=== PATIENT | female | born 1930 | race Caucasian/White ===

== ENCOUNTER 2017-12-19 13:25 | Inpatient (IN) | payer MEDICARE ==
[2017-12-19] VITALS (22 sets, daily range): BP systolic 135–191; BP diastolic 59–91
[~2017-12-19] VITALS: Ht 165.1 cm; Wt 66.2 kg
[~2017-12-19 13:25] MED LIST: ANEXSIA 7.5/321 EACH PO; MOBIC7.5 M1; Z.0.AMBIEN10 MG PO; Z.0.CIPRO500 MG; Z.0.COQ-10100 MG PO; Z.0.PRAVACHOL40 MG PO; [UNRECOGNIZED DRUG - OTHER] TOP
[2017-12-19] MEDS ORDERED: MECLIZINE HCL 12.5 MG TAB PO ONE (13:45)
[2017-12-19 13:55] LABS: BASOPHILS % 0.6 % (0.0-1.0); EOSINOPHILS # (AUTO) 0.3 (0.0-0.4); EOSINOPHILS % 4.2 % (0.0-6.0); HEMATOCRIT 50.2 % (34.2-44.1); LYMPHOCYTES # (AUTO) 2.6 (1.0-3.2); LYMPHOCYTES % 36.2 % (18.0-39.1); MEAN CORPUSCULAR HGB CONC 33.9 g/dL (31-35); MEAN CORPUSCULAR VOLUME 91.6 fL (81-99); MONOCYTES # (AUTO) 0.5 (0.2-0.8); MONOCYTES % 7.1 % (4.4-11.3); NEUTROPHILS # (AUTO) 3.7 (2.1-6.9); NEUTROPHILS % 51.6 % (38.7-80.0); PLATELET COUNT 199 x10e3/uL (140-360); RED BLOOD COUNT 5.48 x10e6/uL (3.6-5.1); RED CELL DISTRIBUTION WIDTH 13.2 % (11.7-14.4)
[2017-12-19 14:16] LABS: ALANINE AMINOTRANSFERASE 17 IU/L (0-55); ALBUMIN 4.3 g/dL (3.5-5.0); ALBUMIN/GLOBULIN RATIO 1.2 (0.8-2.0); ALKALINE PHOSPHATASE 77 IU/L (40-150); ANION GAP 12.7 mmol/L (8-16); BLOOD UREA NITROGEN 19 mg/dL (7-26); BUN/CREATININE RATIO 25 (6-25); CALCIUM 10.3 mg/dL (8.4-10.2); CARBON DIOXIDE 30 mmol/L (22-29); CHLORIDE 104 mmol/L (98-107); CREATINE KINASE 33 IU/L (29-168); CREATININE, SERUM 0.76 mg/dL (0.57-1.11); EST GLOMERULAR FILTRATION RATE > 60 ML/MIN (60-); GLUCOSE 93 mg/dL (74-118); POTASSIUM 4.7 mmol/L (3.5-5.1); SODIUM 142 mmol/L (136-145)
--- NOTE | 2017-12-19 14:19 | Diagnostic Imaging Report ---
History:Vertigo Comparison studies: None Technique: Axial images were obtained from the skull base to the vertex. Coronal and sagittal images reconstructed from the axial data. Intravenous contrast: None Findings: Scalp/skull: No abnormalities. Extra-axial spaces: No masses. No fluid collections. Brain sulci: Mildly prominent. Ventricles: Mild compensatory dilatation. No hydrocephalus. Parenchyma: Subtle hypodensities in the supratentorial white matter are small vessel ischemic changes. No masses, hemorrhage, acute or chronic cortical vascular insults. Sellar/suprasellar region: No abnormalities. Craniocervical junction: Patent foramen magnum. No Chiari one malformation. Incidental findings: Atherosclerotic calcifications in the carotid siphons . Impression: No acute abnormalities. Chronic findings: 1. Mild generalized volume loss. 2. Mild supratentorial white matter small vessel ischemic changes. Signed by: Dr. Homer Ruelas M.D. on 12/19/2017 2:15 PM
--- NOTE | 2017-12-19 14:20 | Diagnostic Imaging Report ---
EXAM: XR CHEST 1 VIEW DATE: 12/19/2017 1:38 PM INDICATION: COMPARISON: None FINDINGS: Lines and Tubes: None Heart and Mediastinum: No acute cardiomediastinal findings. Tortuous aorta. Lungs and Pleura: No significant pleural effusion, pneumothorax, or focal consolidation. Bones and Soft Tissues: No acute findings. IMPRESSION: 1. No acute cardiopulmonary findings. Signed by: Dr. Long Moore MD on 12/19/2017 2:17 PM
[2017-12-19] MEDS ORDERED: LISINOPRIL10 MG PO (15:27)
[2017-12-19] MEDS ORDERED: CYMBALTA20 MG PO (15:31)
[2017-12-19] MEDS ORDERED: SODIUM CHLORIDE 0.9% 1000ML 1,000 ML IV SCH (15:35)
[2017-12-19] MEDS ORDERED: TEMAZEPAM15 MG (15:37)
[2017-12-19] MEDS ORDERED: ASPIRIN 81 MG CHEW TAB PO ONE (15:45)
[2017-12-19 15:50] LABS: BILIRUBIN,URINE NEGATIVE (NEGATIVE); CLARITY,URINE CLEAR (CLEAR); COLOR,URINE YELLOW (YELLOW); KETONES,URINE NEGATIVE (NEGATIVE); LEUKOCYTE ESTERASE ,URINE TRACE (NEGATIVE); NITRITE,URINE POSITIVE (NEGATIVE); PROTEIN,URINE DIPSTICK NEGATIVE (NEGATIVE); URINE UROBILINOGEN 0.2 mg/dL (0.2 - 1)
[2017-12-19 15:59] LABS: BACTERIA,URINE MANY /HPF; EPITHELIAL CELLS,URINE RARE /LPF; RBC,URINE 0-5 /HPF (0-5)
[2017-12-19] MEDS ORDERED: MECLIZINE HCL 12.5 MG TAB PO PRN (16:00)
[2017-12-19] MEDS: HYDRALAZINE HCL 20 MG/ML VIAL IV PRN ×2 (16:05→22:02)
[2017-12-19] MEDS ORDERED: HYDROCODONE/APAP 7.5MG-325MG 1 EA TAB PO PRN (16:15)
[2017-12-19] MEDS ORDERED: CLONIDINE HCL 0.2 MG TAB PO PRN (16:15)
[2017-12-19] MEDS ORDERED: TEMAZEPAM 15 MG CAP PO PRN (16:15)
[2017-12-19] MEDS: HYDROCODONE/APAP 7.5MG-325MG 1 EA TAB PO PRN ×2 (17:12→22:50)
--- NOTE | 2017-12-19 17:25 | Diagnostic Imaging Report ---
History: Dizziness Comparison studies: Head CT on 12/19/2017 Technique: Sagittal T2; axial DWI, FLAIR, MPGR, T1, Coronal FLAIR. Intravenous contrast: None Findings: Scalp: Normal in signal . No masses . Bone marrow: Normal in signal intensity. Extra-axial: No masses or fluid collections. Brain sulci: Mildly prominent. Ventricles: Mild compensatory dilatation. No hydrocephalus. Parenchyma: Multiple discrete and confluent T2 FLAIR hyperintense foci in the supratentorial white matter and in the daniel are nonspecific small vessel ischemic changes. No masses, hemorrhage, acute or chronic cortical ischemic insults. Suprasellar region: No abnormalities. Craniocervical junction: No abnormalities. Patent foramen magnum. No Chiari one malformation. Vessels: Normal flow-voids in the arteries and sinuses. IMPRESSION: No acute abnormalities. No changes when compared to the head CT on 12/19/2017. Chronic findings: 1. Mild generalized volume loss 2. Mild microvascular small vessel ischemic changes in the supratentorial white matter and in the daniel. Signed by: Dr. Homer Ruelas M.D. on 12/19/2017 5:21 PM
[2017-12-19] MEDS ORDERED: D3 DOTS2000 UNIT PO (19:22)
[2017-12-19] MEDS: KETOROLAC TROMETHAMINE 30 MG/ML VIAL IV PRN (20:05)
[2017-12-19 22:13] LABS: CREATINE KINASE 22 IU/L (29-168)
[2017-12-20] VITALS (27 sets, daily range): BP systolic 114–174; BP diastolic 53–94
[2017-12-20] MEDS: HYDRALAZINE HCL 20 MG/ML VIAL IV PRN (02:29)
[2017-12-20] MEDS: KETOROLAC TROMETHAMINE 30 MG/ML VIAL IV PRN ×3 (04:09→19:30)
[2017-12-20] MEDS ORDERED: ONDANSETRON HCL INJ 2 MG/ML VIAL ONE (05:56)
[2017-12-20 06:28] LABS: BASOPHILS % 0.5 % (0.0-1.0); EOSINOPHILS # (AUTO) 0.2 (0.0-0.4); HEMATOCRIT 44.7 % (34.2-44.1); HEMOGLOBIN 15.3 g/dL (12.0-16.0); LYMPHOCYTES # (AUTO) 1.4 (1.0-3.2); LYMPHOCYTES % 17.5 % (18.0-39.1); MEAN CORPUSCULAR HEMOGLOBIN 30.3 pg (28-32); MEAN CORPUSCULAR HGB CONC 34.2 g/dL (31-35); MEAN CORPUSCULAR VOLUME 88.5 fL (81-99); MONOCYTES # (AUTO) 0.5 (0.2-0.8); MONOCYTES % 6.5 % (4.4-11.3); NEUTROPHILS # (AUTO) 5.9 (2.1-6.9); NEUTROPHILS % 73.1 % (38.7-80.0); PLATELET COUNT 183 x10e3/uL (140-360); RED BLOOD COUNT 5.05 x10e6/uL (3.6-5.1); RED CELL DISTRIBUTION WIDTH 13.3 % (11.7-14.4)
[2017-12-20 07:01] LABS: ALANINE AMINOTRANSFERASE 14 IU/L (0-55); ALBUMIN 3.9 g/dL (3.5-5.0); ALBUMIN/GLOBULIN RATIO 1.4 (0.8-2.0); ALKALINE PHOSPHATASE 66 IU/L (40-150); ANION GAP 14.6 mmol/L (8-16); BLOOD UREA NITROGEN 16 mg/dL (7-26); BUN/CREATININE RATIO 25 (6-25); CALCIUM 9.3 mg/dL (8.4-10.2); CARBON DIOXIDE 21 mmol/L (22-29); CHLORIDE 109 mmol/L (98-107); CREATININE, SERUM 0.65 mg/dL (0.57-1.11); EST GLOMERULAR FILTRATION RATE > 60 ML/MIN (60-); GLUCOSE 131 mg/dL (74-118); POTASSIUM 3.6 mmol/L (3.5-5.1); SODIUM 141 mmol/L (136-145)
[2017-12-20 07:59] LABS: CREATINE KINASE 35 IU/L (29-168)
[2017-12-20] MEDS: LISINOPRIL 10 MG TAB PO SCH ×2 (08:07→09:00)
[2017-12-20] MEDS: HYDROCODONE/APAP 7.5MG-325MG 1 EA TAB PO PRN (08:50)
[2017-12-20] MEDS ORDERED: DULOXETINE HCL 20 MG DELAYED RELEASE PO SCH (09:00)
[2017-12-20 11:50] LABS: CHOL/HDL RATIO 4.8 (3.0-3.6)
[2017-12-20 12:10] LABS: THYROID STIMULATING HORMONE 1.301 uIU/mL (0.350-4.940)
[2017-12-20 12:54] LABS: CREATINE KINASE 43 IU/L (29-168)
--- NOTE | 2017-12-20 14:12 | Consultation ---
DATE OF CONSULTATION: HISTORY OF PRESENT ILLNESS: Ms. Stephens is an 87-year-old right hand dominant woman with past medical history significant for hypertension, hyperlipidemia, and chronic intermittent vertigo who presented to the Emergency Center at [facility] on December 19, 2017 with vertigo. For 6 days prior to admission, the patient has experienced an intermittent vertiginous sensation with associated blurred vision, nausea, and dry heaving. Ms. Stephens reports the vertiginous sensation and other symptoms are exacerbated by movement (i.e. turning the head in either direction, turning over an either direction in bed, etc.). The vertiginous sensation is transient, lasting only a few seconds. The vertiginous sensation and associated symptoms persisted, unchanged, for 6 days. Ms. Stephens was brought to the Emergency Center at [facility] by her daughter, Zo (a nurse at [facility]), for further evaluation of her symptoms. Upon arrival in the Emergency Center, the patient was afebrile with a blood pressure of 193/90 mmHg and a pulse of 71 beats per minute. Her neurological examination was documented as follows: Alert. Oriented x3. No alteration in mental status. Not disoriented. Alertness is not decreased. No aphasia. Mood/affect normal. Speech normal. No dysphagia. Cranial nerves normal (as tested). No cranial nerve deficit. Normal gait. No motor deficit. No weakness. No sensory deficit. Reflexes normal. No pronator drift. A CT of the brain without contrast was performed and did not show evidence of recent large territorial ischemia or hemorrhage. While in the Emergency Center, the patient was found to have runs of ventricular tachycardia. Therefore, the patient was admitted to the intensive care unit at [facility] for further evaluation of her cardiac and other symptoms. As stated above, the patient does endorse a history of chronic intermittent vertigo. Generally, the symptoms lasted for approximately 2 days and are significantly improved with Antivert. However, the patient's symptoms have not been alleviated with Antivert over the past several days. REVIEW OF SYSTEMS: Nausea, dry heaving, blurred vision, chronic neck and low back pain, vertigo. Otherwise, a 12-point review of systems is negative. PAST MEDICAL HISTORY: Hypertension, hyperlipidemia, chronic intermittent vertigo, chronic low back pain secondary to degenerative disk disease and scoliosis, macular degeneration, hiatal hernia. PAST SURGICAL HISTORY: Fundoplication, hernia repair, left patellar surgery, total hysterectomy, tonsillectomy, appendectomy, bilateral cataract surgeries. PAST HOSPITALIZATIONS: Surgeries/procedures as listed, childbirth x5, chest pain/bradycardia. FAMILY MEDICAL HISTORY: The patient's paternal and maternal grandparents are . Their medical histories are unknown. The patient's father is from an unknown cancer. The patient's mother is . She had coronary artery disease and stroke. Ms. Stephens had 4 siblings. Two sisters are , their causes of are unknown. One brother is from a stroke. A second brother is from mesothelioma. Ms. Stephens has 5 children. One daughter has hypertension, hyperlipidemia, and ovarian cancer. A second daughter has diabetes mellitus and uterine cancer. A third daughter has diabetes mellitus. A fourth daughter has hyperlipidemia. SOCIAL HISTORY: The patient is . She graduated high school, attended business school, and nursing school. The patient is retired. Ms. Stephens does smoke. She has smoked 1 pack of cigarettes per day for the past 6 years. She does not report current or prior alcohol or recreational drug use. HOME MEDICATIONS: Vitamin D3 5000 units by mouth daily, Cymbalta 60 mg by mouth daily, hydrocodone/acetaminophen 10-325 mg by mouth 4 times daily as needed for pain, lisinopril 10 mg by mouth daily, pravastatin 40 mg by mouth at bedtime daily, temazepam 15 mg by mouth at bedtime as needed for insomnia, coenzyme Q10 400 mg by mouth daily. ALLERGIES: NO KNOWN DRUG ALLERGIES. NO KNOWN FOOD ALLERGIES. NO KNOWN ALLERGIES TO LATEX. NO KNOWN ALLERGIES TO IODINE OR OTHER CONTRAST MATERIALS. PHYSICAL EXAMINATION VITAL SIGNS: Height 65 inches, weight 146 pounds, BMI 24.3 kg per meter squared. Blood pressure 124/60 mmHg, pulse 72 beats per minute, respiratory rate 16 breaths per minute, oxygen saturation 94% on room air. GENERAL: The patient is awake and alert, does not appear distressed. HEENT: Normocephalic, atraumatic. Pupils are surgical. Moist mucous membranes. NECK: Supple. No appreciable thyromegaly. No appreciable carotid bruits. CARDIOVASCULAR: S1, S2, regular rate and rhythm. No murmurs, rubs, or gallops. RESPIRATORY: Clear to auscultation bilaterally. No wheezes, rhonchi, or rales. EXTREMITIES: The skin is warm and dry. No clubbing, cyanosis, or edema. The posterior tibial and dorsalis pedis pulses are 1+ and symmetric. SKIN: No rashes or lesions. NEUROLOGIC: MEMORY/ATTENTION: The patient is awake and alert, oriented to person, place, time, and situation. CRANIAL NERVES: Cranial nerve I - not tested. Cranial nerves II, III, IV, and - pupils are surgical, extraocular movements intact, no nystagmus. Cranial nerve V - sensation to light touch and pinprick is intact in the bilateral V1 through V3 distributions. Strength of the temporalis and masseter muscles is within normal limits. Cranial nerve VII - the face is symmetric as are all facial movements. Strength is within normal limits. Cranial nerve VIII - hearing is intact to finger rub bilaterally. Cranial nerve IX, X - soft palate elevates equally and symmetrically. Cranial nerve XI - normal strength of the bilateral sternocleidomastoid and trapezius muscles. Cranial nerve XII - the tongue protrudes midline and moves symmetrically from side to side. STRENGTH: Bulk is normal. Strength is 5/5 in the bilateral deltoids, biceps, triceps, wrist flexors and extensors, finger flexors and extensors, intrinsic hand muscles, hip flexors, knee flexors and extensors, ankle dorsiflexion and plantar flexion, and intrinsic foot muscles. Tone is normal. DTRs: Deep tendon reflexes are 1+ and symmetric at the triceps, biceps, brachioradialis, and patellas. Deep tendon reflexes are absent and symmetric at the Achilles. Plantar responses are flexor bilaterally. SENSATION: Sensation is intact to light touch and pinprick in both arms and both legs. CEREBELLAR: Pykvei-crkz-nrpaom and heel-rucker movements are intact without dysmetria or other impairment. GAIT: Deferred. SPEECH: Spontaneous speech is normal without appreciable dysarthria or aphasia. Repetition is intact. INVOLUNTARY MOVEMENTS: None. PRONATOR DRIFTS: None. LABORATORY DATA: Sodium 141, potassium 3.6, chloride 109, carbon dioxide 21, anion gap 14.6, BUN 16, creatinine 0.65, estimated GFR greater than 60, BUN to creatinine ratio 25, glucose 131, calcium 9.3, total bilirubin 0.7, AST 19, ALT 14, alkaline phosphatase 66, total protein 6.7, albumin 3.9, globulin 2.8, albumin to globulin ratio 1.4. Creatinine kinase 33, 22, 35. CK-MB 0.80, 0.60, 0.90. Troponin I less than 0.001, less than 0.001, less than 0.001. B-natriuretic peptide 114.5. The CBC with differential and platelets reveals a white blood cell count of 8.06 with 73.1% neutrophils, 17.5% lymphocytes, 6.5% monocytes, 2.0% eosinophils, and 0.5% basophils. Hemoglobin and hematocrit of 15.3 and 44.7, respectively. The platelet count is 183. Urinalysis is significant for positive nitrites, trace leukocyte esterase, 11 to 20 white blood cells, and many urine bacteria. DIAGNOSTIC STUDIES 1. EKG 12/19/2017: Normal sinus rhythm at 70 beats per minute. 2. Chest x-ray 12/19/2017: No acute cardiopulmonary findings. 3. CT of the brain without contrast 12/19/2017: On my review, there is no evidence of recent large territorial ischemia, hemorrhage, mass, or mass effect. 4. MRI of the brain without contrast 12/19/2017: On my review, there is no evidence of recent large territorial ischemia, hemorrhage, mass, or mass effect. There is diffuse cerebral atrophy, appropriate for age. There are multiple scattered T2/flair hyperintensities in the supratentorial white matter and daniel compatible with moderate chronic small vessel ischemic disease. 5. Echocardiogram: Ejection fraction 60 to 65%. Concentric left ventricular hypertrophy. Mild aortic insufficiency and mitral regurgitation. ASSESSMENT AND PLAN: Ms. Stephens is an 87-year-old right hand dominant woman with chronic intermittent vertigo and admitted to [facility] with vertigo, blurred vision, nausea, and dry heaving of 6 days duration. The patient's neurological examination is nonfocal. Her laboratory data and other diagnostic studies have been reviewed and are documented above. In my opinion, Ms. Stephens has benign paroxysmal positional vertigo. The diagnosis was discussed in detail with the patient. RECOMMENDATIONS 1. Meclizine will be changed to 25 mg by mouth once daily. A physical therapy consultation will be placed for further evaluation and treatment of benign paroxysmal positional vertigo. 2. Defer treatment of the remaining medical comorbidities to the primary and other services following the patient. Thank you for this consultation. I will continue to follow this patient while she remains in the hospital. TIME SPENT: 50 minutes. Job#: [id number] DAVYU AYLEEN
[2017-12-20] MEDS ORDERED: HYDROMORPHONE 1MG/1ML INJ IV ONE (14:30)
--- NOTE | 2017-12-20 14:55 | Consultation ---
DATE OF CONSULTATION: December 20, 2017 CARDIAC CONSULTATION REASON FOR CONSULTATION: Dizzy spells with nonsustained VT noted on telemetry. 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 Most importantly is the smoking, hypertension, hyperlipidemia, and severe low back pain with very limited activities. She does have history of vertigo sensation on and off. Since over the last few days, she is having worsening symptoms. They looks definitely vertigo by description, positional, associated with nausea, feeling unwell and almost vomiting. She did have also episode of blurry vision. All these episodes are related to movement of her neck. She denied having any anginal symptoms. She denied having any chest pain. She came to the emergency room. She had MRI and CT scan of her head, which showed chronic changes with no acute changes. While in ER, it was noted wide QRS complexes. It was thought to be nonsustained VT. The patient is admitted to the intensive care unit. Cardiac consultation is obtained. I visited with the patient who is doing well. Her main symptom is her severe vertigo. Her activities are very much limited by her back problem. At her level of activity, there is no angina and no shortness of breath. She is chronic smoker for many-many years. There is no orthopnea and no paroxysmal nocturnal dyspnea. There is no syncope or presyncope. There are repeated episodes of vertigo-like illnesses. REVIEW OF SYSTEMS CARDIAC: As per above. PULMONARY: Occasional cough. No hemoptysis. Shortness of breath on exertion, but usually she is limited with her back symptoms. No recent travel. GI: Nausea with episodes of vertigo, but no vomiting, no diarrhea, no melena. : Increased frequency of urination. MUSCULOSKELETAL: Back pain with radiculopathy, very severe, very advanced. NEUROLOGICAL: No CVA. ENDOCRINE: No diabetes. HEMATOLOGY: No easy bruising or bleeding. PAST MEDICAL HISTORY 1. Hypertension. 2. Hyperlipidemia. 3. Chronic low back pain. 4. Macular degeneration. 5. Chronic intermittent vertigo. 6. Hiatus hernia. 7. Fundoplication. 8. Abdominal incisional hernia repair. 9. Left bipolar surgery. 10. Total hysterectomy. 11. Tonsillectomy. 12. Appendectomy. 13. Bilateral cataract surgery. SOCIAL HISTORY: She lives at home. She is a heavy smoker. She is a non-alcohol drinker. She is a retired nurse. HOME MEDICATIONS: Lisinopril 10 mg a day, Pravastatin 40 mg a day, vitamin D, temazepam, and vitamins and other p.r.n. medications. ALLERGIES: NONE. FAMILY HISTORY: Father of cancer. Mother of stroke and CAD. Out of her siblings, hypertension, diabetes mellitus, hyperlipidemia. PHYSICAL EXAMINATION VITAL SIGNS: Height of 5 feet 5 inches, weight of 146 pounds. Blood pressure 144/60, heart rate of 80, respiratory rate of 18, temperature of 99 Fahrenheit. HEENT: Pupils are reactive. NECK: No elevation of jugular venous pulsation. No bruit. No thyromegaly. No lymphadenopathy. CHEST: Clear to auscultation and percussion. HEART: PMI 5th left intercostal space. Normal 1st and 2nd heart sounds. ABDOMEN: Soft with good bowel sounds. No organomegaly. No abdominal bruits. EXTREMITIES: No cyanosis. No clubbing. No edema. NEUROLOGIC: Positional vertigo is noted. Patient is avoiding to move her head. No motor deficits. LABORATORY DATA: EKG showing normal sinus rhythm. ST-T segment changes are noted. BNP of 114. Cardiac enzymes are normal. CT and MRI by report chronic changes. Sodium of 141, potassium 3.6, BUN of 16, creatinine of 0.65. White blood cell count of 8000, hemoglobin of 15.2, hematocrit 45%, platelet count of 183,000. IMPRESSION AND PLAN 1. Positional vertigo. 2. Smoker. 3. Chronic obstructive pulmonary disease. 4. Hypertension. 5. Hyperlipidemia. 6. Abnormal electrocardiogram. 7. Reviewing of telemetry seems to be artifact. 1. There is no doubt, patient does have significant coronary artery disease in view of all her risk factor and her smoking and her age and the abnormality on the EKG. Discussed at length with the patient. For the time being, she prefers just conservative approach, which we will respect. Offered stress test in the future when she feels better. We will review her echocardiogram which is ordered. The patient can go to the floor. Discussed with the patient and her family at bedside. Job#: [id number] JAROCHO
--- NOTE | 2017-12-20 16:43 | History and Physical ---
HISTORY OF PRESENT ILLNESS: She is an 87-year-old female with past medical history positive for chronic back pain, hypertension who came here to the hospital complaining of dizziness. She had an MRI of the head which showed no significant abnormalities. Patient was seen by Dr. Georgette Hurst who diagnosed her with benign positional vertigo. REVIEW OF SYSTEMS: CARDIOVASCULAR: No chest pain or palpitation. RESPIRATORY: No shortness of breath and no cough. GASTROINTESTINAL: No nausea, vomiting or diarrhea. GENITOURINARY: No frequency and no dysuria. MUSCULOSKELETAL: She has chronic back pain. SOCIAL HISTORY: She smokes. She does not drink. PAST MEDICAL HISTORY: Hypertension and chronic back pain. PHYSICAL EXAMINATION: VITAL SIGNS: Blood pressure 140/60, temperature to 98.1, heart rate 76 per minute, respiratory rate 14 per minute. Oxygen saturation 96%. LABORATORY DATA: On the blood work we have BMP with a sodium 141, potassium 3.6, chloride 109. CO2 21, BUN 16, creatinine 0.65. Glucose 131. On the CBC white blood count 8.06, hemoglobin 15.3 hematocrit 44.7, platelet count 183,000. AST 18, ALT 14, total bilirubin 0.7, alkaline phosphatase 66. MRI of the head showed no evidence of any stroke or tumors and showed ischemic changes on the brain. Chest x-ray came back unremarkable. FINAL IMPRESSION 1. Benign positional vertigo. 2. Hypertension. 3. Chronic back pain. PLAN OF TREATMENT: Going to start physical and occupational therapy. Continue lisinopril 10 mg daily. [place] 1 tablet q.4 h. as needed for pain. Cymbalta 60 mg daily. Toradol 30 mg IV q.6 h. as needed for severe pain. Possible discharge tomorrow. Job#: [id number]
[2017-12-20] MEDS ORDERED: CIPROFLOXACIN 250 MG TAB PO SCH (17:00)
[2017-12-20] MEDS: ONDANSETRON HCL INJ 2 MG/ML VIAL IV PRN ×2 (17:22→21:22)
[2017-12-20] MEDS: HYDROCODONE/APAP 10MG-325MG TAB PO PRN (20:27)
[2017-12-20] MEDS: CEFTRIAXONE SOD 1 GM VIAL IV SCH (22:33)
[2017-12-21] VITALS: BP 124/55
[2017-12-21] MEDS: HYDROCODONE/APAP 10MG-325MG TAB PO PRN ×2 (02:34→08:51)
[2017-12-21 04:00] VITALS: BP 147/67
[2017-12-21 06:53] LABS: BASOPHILS % 0.5 % (0.0-1.0); EOSINOPHILS # (AUTO) 0.2 (0.0-0.4); HEMATOCRIT 42.3 % (34.2-44.1); LYMPHOCYTES # (AUTO) 2.3 (1.0-3.2); LYMPHOCYTES % 30.7 % (18.0-39.1); MEAN CORPUSCULAR HEMOGLOBIN 30.2 pg (28-32); MEAN CORPUSCULAR HGB CONC 33.1 g/dL (31-35); MEAN CORPUSCULAR VOLUME 91.4 fL (81-99); MONOCYTES # (AUTO) 0.6 (0.2-0.8); MONOCYTES % 8.1 % (4.4-11.3); NEUTROPHILS # (AUTO) 4.4 (2.1-6.9); NEUTROPHILS % 58.6 % (38.7-80.0); PLATELET COUNT 175 x10e3/uL (140-360); RED BLOOD COUNT 4.63 x10e6/uL (3.6-5.1); RED CELL DISTRIBUTION WIDTH 13.2 % (11.7-14.4)
[2017-12-21 07:21] LABS: ALANINE AMINOTRANSFERASE 12 IU/L (0-55); ALBUMIN 3.5 g/dL (3.5-5.0); ALBUMIN/GLOBULIN RATIO 1.3 (0.8-2.0); ALKALINE PHOSPHATASE 55 IU/L (40-150); ANION GAP 11.1 mmol/L (8-16); BLOOD UREA NITROGEN 25 mg/dL (7-26); BUN/CREATININE RATIO 33 (6-25); CALCIUM 9.1 mg/dL (8.4-10.2); CARBON DIOXIDE 25 mmol/L (22-29); CHLORIDE 107 mmol/L (98-107); CREATININE, SERUM 0.76 mg/dL (0.57-1.11); EST GLOMERULAR FILTRATION RATE > 60 ML/MIN (60-); GLUCOSE 91 mg/dL (74-118); POTASSIUM 4.1 mmol/L (3.5-5.1); SODIUM 139 mmol/L (136-145)
[2017-12-21 07:28] VITALS: BP 158/67
[2017-12-21] MEDS: ONDANSETRON HCL INJ 2 MG/ML VIAL IV PRN (08:44)
[2017-12-21] MEDS: LISINOPRIL 10 MG TAB PO SCH (08:50)
[2017-12-21] MEDS ORDERED: DULOXETINE HCL 20 MG DELAYED RELEASE PO SCH (09:00)
[2017-12-21] MEDS ORDERED: MECLIZINE HCL 12.5 MG TAB PO SCH (09:00)
[2017-12-21] MEDS: CEFTRIAXONE SOD 1 GM VIAL IV SCH (09:30)
[2017-12-21] MEDS ORDERED: MECLIZINE HCL12.5 MG PO (09:35)
[2017-12-21] MEDS ORDERED: CIPRO500 MG PO (09:35)
[2017-12-21] MEDS ORDERED: ZOFRAN ODT4 MG SL (09:36)
[2017-12-21 09:39] VITALS: BP 158/67
--- NOTE | 2017-12-21 09:59 | Discharge Summary ---
ADMIT DIAGNOSES 1. Sepsis secondary to urinary tract infection. 2. Hypertensive heart disease. 3. Chronic obstructive pulmonary disease. 4. Tobacco abuse. DISCHARGE DIAGNOSES 1. Extended spectrum beta-lactamase E. coli urinary tract infection, resolving. 2. Hypertensive heart disease. 3. Chronic obstructive pulmonary disease. 4. Tobacco abuse. 5. Benign positional vertigo. HOSPITAL COURSE: This is an 87-year-old white woman was initially admitted to [facility] with the diagnosis of sepsis secondary to urinary tract infection. She was also diagnosed with benign positional vertigo during this hospitalization. The patient had urine culture done during hospitalization. Preliminary culture revealed gram-negative chris organisms. The final results of the urine culture revealed ESBL E. coli organism. The patient was also seen by cardiology during this hospitalization, namely Dr. Terry Snider, who did concur with neurology that this was positional vertigo. The patient was seen by neurologist, namely Dr. Renetta Hurst. During the hospital stay, the patient underwent a brain CT which revealed mild generalized volume loss with mild supratentorial white matter small vessel ischemic changes, but no acute pathology was appreciated. The patient subsequently underwent MRI of the brain during this hospitalization without contrast that did not reveal any acute intracranial abnormality, but did confirm the findings on the CT of the head, which were mild microvascular small vessel ischemic changes in the supratentorial white matter in the daniel. The patient's hospitalization was unremarkable. The patient's condition on discharge was stable. DISCHARGE MEDICATIONS 1. Ciprofloxacin 250 mg p.o. b.i.d. for 7 days. 2. Ondansetron 8 mg p.o. b.i.d. p.r.n. nausea and vomiting, 12 prescribed. 3. Meclizine 25 mg 1 p.o. b.i.d. p.r.n. nausea and vomiting, 30 prescribed. 4. Hydrocodone with acetaminophen 10 per 325 mg q.i.d. p.r.n. pain. 5. Duloxetine 60 mg daily. 6. Lisinopril 10 mg daily. 7. Temazepam 15 mg p.o. at bedtime p.r.n. insomnia. 8. Pravastatin 40 mg at bedtime. 9. Co-Enzyme Q10 400 mg daily. 10. Vitamin D3 5000 units daily. FOLLOWUP INSTRUCTIONS: The patient was instructed to follow with her attending, namely myself, Dr. Memo Reynoso, on December 28, 2017. MEMO REYNOSO MD Job#: [id number] RI cc: MD RENETTA BELLA MD MTDD
== END 2017-12-21 10:04 | disposition home or self-care (01) | DRG 872 ==
LOC: ER 13:25 → ERHOLD 15:54 → ICU 18:34 → MED/SURG 12-20 17:16
PROVIDERS: ADMIT Internal Medicine; ATTEND Internal Medicine
DX: A41.9 Sepsis, unspecified organism (principal); N39.0 Urinary tract infection, site not specified; I47.2 Ventricular tachycardia; H81.10 Benign paroxysmal vertigo, unspecified ear; J44.9 Chronic obstructive pulmonary disease, unspecified; Z16.12 Extended spectrum beta lactamase (ESBL) resistance; F17.210 Nicotine dependence, cigarettes, uncomplicated; I11.9 Hypertensive heart disease without heart failure; B96.20 Unspecified Escherichia coli [E. coli] as the cause of diseases classified elsewhere; H35.30 Unspecified macular degeneration; K44.9 Diaphragmatic hernia without obstruction or gangrene; M54.5 Low back pain; G89.29 Other chronic pain
CPT/HCPCS: 36415; 70450; 70551; 71045; 80053; 80061; 81001; 82550; 82553; 83735; 83880; 84443; 84484; 85025; 87086; 87186; 93005; 93306; 96376; 99284; J0360; J0696; J1170; J1885; J2405; J7030

== ENCOUNTER → 2018-09-08 | Outpatient (CLI) | payer MEDICARE ==
[~2018-09-08] MED LIST changes: +CIPRO500 MG PO; +CYMBALTA20 MG PO; +D3 DOTS2000 UNIT PO; +LISINOPRIL10 MG PO; +MECLIZINE HCL12.5 MG PO; +TEMAZEPAM15 MG; +ZOFRAN ODT4 MG SL
--- NOTE | 2018-09-08 14:16 | Diagnostic Imaging Report ---
EXAMINATION: CHEST 2 VIEWS INDICATION: Pneumonia. COMPARISON: Chest radiograph 12/19/2017. FINDINGS: TUBES and LINES: None. LUNGS: Mild patchy left basilar opacity. No evidence of lobar consolidation or pulmonary edema. PLEURA: No pleural effusion or pneumothorax. HEART AND MEDIASTINUM: The cardiomediastinal silhouette is unremarkable. Atherosclerotic calcification of the aortic arch. BONES AND SOFT TISSUES: Dextroconvex scoliosis of the thoracic spine. Mild loss of vertebral body height within a mid thoracic vertebral body. UPPER ABDOMEN: No free air under the diaphragm. IMPRESSION: Mild patchy left basilar opacity, likely atelectasis. Patchy pneumonia can have a similar appearance in the appropriate clinical setting. No evidence of lobar pneumonia. Signed by: Dr. Selene Tejeda MD on 09/08/2018 2:13 PM
== END ==
LOC: RAD 12:36
PROVIDERS: ATTEND Internal Medicine
DX: J15.9 Unspecified bacterial pneumonia (principal)
CPT/HCPCS: 71046

== ENCOUNTER → 2018-11-15 | Outpatient (CLI) | payer MEDICARE ==
[~2018-11-15] MED LIST changes: +NORCO 10-325 T1 EACH PO; -TEMAZEPAM15 MG; +TEMAZEPAM15 MG PO
--- NOTE | 2018-11-15 13:34 | Diagnostic Imaging Report ---
EXAMINATION: CHEST 2 VIEWS INDICATION: Cough. COMPARISON: Chest radiograph 09/08/2018. FINDINGS: TUBES and LINES: None. LUNGS: Lungs are moderately inflated. Interval resolution of mild patchy left basilar opacity. There is no evidence of pneumonia or pulmonary edema. PLEURA: No pleural effusion or pneumothorax. HEART AND MEDIASTINUM: The cardiomediastinal silhouette is unremarkable. There are atherosclerotic calcifications within the aorta. BONES AND SOFT TISSUES: Dextroconvex scoliosis of the thoracic spine. Mild loss of vertebral body height within a mid thoracic vertebral body is again noted. UPPER ABDOMEN: No free air under the diaphragm. IMPRESSION: No radiographic evidence of pneumonia. Signed by: Dr. Selene Tejeda MD on 11/15/2018 1:30 PM
== END ==
LOC: RAD 12:32
PROVIDERS: ATTEND Internal Medicine
DX: R05 Cough (principal)
CPT/HCPCS: 71046

== ENCOUNTER 2018-11-18 16:29 | Inpatient (IN) | payer MEDICARE ==
[~2018-11-18] VITALS: Ht 165.1 cm; Wt 70.8 kg
[~2018-11-18 16:29] MED LIST changes: -NORCO 10-325 T1 EACH PO
[2018-11-18] MEDS ORDERED: ALBUTEROL/IPRATROPIUM 3 ML NEB NEB ONE ×2 (17:15→18:00)
[2018-11-18] MEDS ORDERED: SODIUM CHLORIDE 0.9% 1000ML 1,000 ML IV ONE (17:15)
[2018-11-18] MEDS ORDERED: DEXAMETHASONE SOD PHOS 10 MG/1 ML VIAL IV ONE (17:15)
[2018-11-18] MEDS: CEFTAROLINE FOSAMIL ACETATE 600 MG in SODIUM CHLORIDE 0.9% 250ML 250 ML IV SCH (17:23)
[2018-11-18 17:27] LABS: BASOPHILS % 0.4 % (0.0-1.0); EOSINOPHILS # (AUTO) 0.4 (0.0-0.4); HEMATOCRIT 43.5 % (34.2-44.1); HEMOGLOBIN 14.8 g/dL (12.0-16.0); LYMPHOCYTES % 20.9 % (18.0-39.1); MEAN CORPUSCULAR HEMOGLOBIN 30.8 pg (28-32); MEAN CORPUSCULAR VOLUME 90.4 fL (81-99); MONOCYTES % 10.3 % (4.4-11.3); NEUTROPHILS % 63.9 % (38.7-80.0); PLATELET COUNT 227 x10e3/uL (140-360); RED BLOOD COUNT 4.81 x10e6/uL (3.6-5.1); RED CELL DISTRIBUTION WIDTH 14.6 % (11.7-14.4)
[2018-11-18] MEDS ORDERED: LISINOPRIL 10 MG TAB PO ONE (17:45)
[2018-11-18 17:46] LABS: ALANINE AMINOTRANSFERASE 19 IU/L (0-55); ALBUMIN 3.8 g/dL (3.5-5.0); ALBUMIN/GLOBULIN RATIO 1.5 (0.8-2.0); ALKALINE PHOSPHATASE 55 IU/L (40-150); ANION GAP 14.4 mmol/L (8-16); BLOOD UREA NITROGEN 13 mg/dL (7-26); BUN/CREATININE RATIO 19 (6-25); CALCIUM 9.5 mg/dL (8.4-10.2); CARBON DIOXIDE 21 mmol/L (22-29); CHLORIDE 108 mmol/L (98-107); EST GLOMERULAR FILTRATION RATE > 60 ML/MIN (60-); GLUCOSE 123 mg/dL (74-118); POTASSIUM 3.4 mmol/L (3.5-5.1); SODIUM 140 mmol/L (136-145)
[2018-11-18 17:47] LABS: ABG HCO3 23 mmol/L (23-28); ABG PCO2 39 mmHg (41-51); ABG PH 7.38 (7.31-7.41); ABG PO2 82 mmHg (80-105)
[2018-11-18] MEDS ORDERED: MAGNESIUM SULFATE 2GM/50ML 50 ML IV ONE (18:00)
--- NOTE | 2018-11-18 18:44 | Diagnostic Imaging Report ---
EXAMINATION: CHEST 2 VIEWS INDICATION: ^Pneumonia ^[id number] ^1815 COMPARISON: 11/15/2018 FINDINGS: PA and lateral views TUBES and LINES: None. LUNGS: Limited by body habitus and low lung volumes. Mild medial retrocardiac opacification. PLEURA: No significant pleural effusion or pneumothorax. HEART AND MEDIASTINUM: The cardiac silhouette is prominent, accentuated by low lung volumes. Aorta is mildly calcified and tortuous. BONES AND SOFT TISSUES: Generalized demineralization limits evaluation. Mild thoracic spine scoliosis. Soft tissues are unremarkable. UPPER ABDOMEN: No free air under the diaphragm. IMPRESSION: Limited as above. Medial retrocardiac opacification, representing atelectasis and/or pneumonia. Signed by: Dr. Tutu Bolanos MD on 11/18/2018 6:41 PM
[2018-11-18] MEDS ORDERED: ASPIRIN 81 MG CHEW TAB PO ONE (18:45)
--- NOTE | 2018-11-18 18:45 | Diagnostic Imaging Report ---
SHOULDER RIGHT COMPLETE - 2 views HISTORY: Pain COMPARISON: None available. FINDINGS: See impression. IMPRESSION: Generalized demineralization. No evidence of acute displaced fracture or dislocation of the right shoulder. Degenerative changes of the glenohumeral joint. Signed by: Dr. Tutu Bolanos MD on 11/18/2018 6:42 PM
[2018-11-18] MEDS: ALBUTEROL/IPRATROPIUM 3 ML NEB NEB SCH ×2 (19:00→23:20)
[2018-11-18] MEDS ORDERED: NORCO 10-325 T1 EACH PO (19:07)
[2018-11-18 19:37] LABS: CREATINE KINASE MB 1.6 ng/mL (0-5.0)
[2018-11-18] MEDS ORDERED: POTASSIUM CHLORIDE 20 MEQ TAB CR PO STA (20:05)
[2018-11-18] MEDS ORDERED: ONDANSETRON HCL 4 MG ORAL DISINTEGRATING TAB SL PRN (20:15)
[2018-11-18] MEDS ORDERED: MECLIZINE HCL 12.5 MG TAB PO PRN (20:15)
[2018-11-18] MEDS ORDERED: POTASSIUM CHLORIDE 20MEQ/15ML UDC ONE (20:15)
[2018-11-18] MEDS ORDERED: POTASSIUM CHLORIDE 20 MEQ TAB CR PO ONE (20:30)
[2018-11-18] MEDS: GUAIFENESIN/CODEINE 10 ML CUP PO PRN (21:15)
[2018-11-18] MEDS ORDERED: GUAIFENESIN/CODEINE 10 ML CUP ONE (21:15)
--- NOTE | 2018-11-18 21:15 | History and Physical ---
CHIEF COMPLAINT: Worsening shortness of breath and cough. HISTORY OF PRESENT ILLNESS: This is an 88-year-old white woman, who presents to [facility] with a 3-4 week history of worsening cough, chest congestion. The patient states two weeks ago she was diagnosed pneumonia, was prescribed oral levofloxacin. The patient states she has not improved in the last two weeks. The patient states her shortness of breath only worsened. The patient's sputum has been productive at times is yusuf in color. In the emergency room, the patient had a chest x-ray performed that revealed retrocardiac opacification. Also, the cardiac silhouette was prominent. The patient also had x-ray of the right shoulder joint, which revealed degenerative changes of the glenohumeral joint. In the emergency room, the patient found a lactic acid of 20.1, which is elevated. The patient's BUN and creatinine are 13 and 0.7 respectively. The patient's potassium 3.4, serum bicarbonate is 21. Initial cardiac enzymes are negative. The patient was admitted for further evaluation and treatment. The patient was found to have white blood cell count 9400, 63% segmented neutrophils. REVIEW OF SYSTEMS: GENERAL: She has had fever and chills and felt quite ill for the last 2 weeks. HEENT: No headaches. No vision changes. CARDIOVASCULAR/RESPIRATORY: Complains of worsening shortness of breath, productive cough and chest congestion for the last 3 to 4 weeks. No chest pain or tightness. No palpitations. GI: No nausea, vomiting, or constipation. : No UTIs. NEUROMUSCULAR: Complains of intense chronic low back pain. ALLERGIES: NO KNOWN DRUG ALLERGIES. PAST MEDICAL HISTORY: 1. Tobacco abuse. 2. COPD. 3. Chronic diastolic congestive heart failure. 4. Degenerative joint disease. 5. 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 6. Hyperlipidemia. 7. Fatty liver disease. 8. GERD. 9. Atherosclerosis. PAST SURGICAL HISTORY: 1. Exploratory laparotomy with repair of hiatal hernia and [place] fundoplication in February 2011. 2. Appendectomy. 3. Total abdominal hysterectomy. 4. Tonsillectomy/adenectomy. 5. Left knee surgery. 6. section. FAMILY HISTORY: Noncontributory. SOCIAL HISTORY: This woman is a and lives alone. She is a retired nurse. This patient is a heavy tobacco smoker, but states she quit a month ago. The patient states she drinks alcohol socially. HOME MEDICATIONS: 1. Vitamin D3 5000 units daily. 2. Cymbalta 60 mg daily. 3. [place] 10/325 one q.i.d. p.r.n. pain. 4. Lisinopril 10 mg daily. 5. Meclizine 25 mg b.i.d. p.r.n. dizziness. 6. Ondansetron 4 mg one sublingual b.i.d. p.r.n. nausea and vomiting. 7. Pravastatin 40 mg at bedtime. 8. Temazepam 15 mg at bedtime p.r.n. 9. Coenzyme Q10 400 mg daily. PHYSICAL EXAMINATION: GENERAL: She is awake, alert, and fully oriented. She is pleasant and cooperative with exam. The patient has obvious dyspnea. Does not appear to be in any respiratory distress. VITAL SIGNS: Height 5 feet 6 inches, weight is 155 pounds, BMI 26. Blood pressure is 132/89, pulse 80, respirations 16, oxygen saturation 98% on 3 L oxygen, temperature 98.2. INTEGUMENT: Skin is warm and dry. No pallor, jaundice, or diaphoresis. The patient's skin has a dusky hue. HEENT: Anicteric sclerae. Moist mucous membranes. The patient has coarse facies and/or smoker's voice.. NECK: Supple. No evidence of jugular venous distention. CARDIOVASCULAR: Distant heart sounds. Regular rate and rhythm. LUNGS: The patient has crackles in bilateral lung palmer with diminished breath sounds at the base. The patient has expiratory wheezing bilaterally. EXTREMITIES: No edema or deformity. NEUROLOGIC: Intact. DIAGNOSES: 1. Left lower lobe pneumonia, likely gram-negative chris. 2. Sepsis secondary to pneumonia. 3. Chronic obstructive pulmonary disease exacerbation. 4. Chronic diastolic congestive heart failure. 5. Tobacco abuse. 6. Hypertensive heart disease. PLAN: 1. We will check a B type natriuretic peptide level to assess for intravascular volume overload. 2. I highly recommend tobacco cessation. 3. We will honor the patient's do not resuscitate code status. 4. Continue nebulized bronchodilator, supplemental oxygen. 5. Intravenous methylprednisone for the patient's COPD exacerbation. 6. Intravenous antibiotics. 7. Follow blood cultures. 8. Gentle blood pressure control. I spent 45 minutes in the care of this critically ill patient. MD ROLY Whitaker/SANJAY /[id number] MTDD
--- NOTE | 2018-11-18 21:22 | NUR ---
RECEIVED PATIENT FROM THE EMERGENCY ROOM PER STRETCHER, PATIENT WENT TO THE BATHROOM THEN POSITIONED IN BED. 02 PER NC REMAIN INTACT, VITALS SIGNS TAKEN. PATIENT HAVING A BAD COUGH, CALL DR. REYNOSO AND RECEIVED NEW ORDERS, NEW ORDERS CARRIED OUT. CALL LIGHT IN REACH. WILL CONTINUE TO MONITOR.
[2018-11-18 21:58] VITALS: BP 161/73
[2018-11-18 22:11] VITALS: BP 161/73
[2018-11-18 22:13] VITALS: BP 161/73
[2018-11-18] MEDS: TEMAZEPAM 15 MG CAP PO SCH (22:28)
[2018-11-18] MEDS: HYDROCODONE/APAP 10MG-325MG TAB PO SCH (23:15)
[2018-11-19] VITALS (7 sets, daily range): BP systolic 132–172; BP diastolic 66–114
[2018-11-19] MEDS: METHYLPREDNISOLONE SOD SUCC 40 MG/ML VIAL 1ML IV SCH ×5 (00:12→23:00)
--- NOTE | 2018-11-19 00:31 | NUR ---
PATIENT CONTINUE RESTING IN BED WITH HOB ELEVATED 02 PER NC REMAIN INTACT PURWICK INTACT. WILL CONTINUE TO MONITOR. CALL LIGHT IN REACH. COUGHING HAS DECREASED.
[2018-11-19] MEDS: ALBUTEROL/IPRATROPIUM 3 ML NEB NEB SCH ×6 (03:15→22:30)
[2018-11-19] MEDS ORDERED: SODIUM CHLORIDE 0.9% 250ML 250 ML ONE (05:06)
[2018-11-19] MEDS: CEFTAROLINE FOSAMIL ACETATE 600 MG in SODIUM CHLORIDE 0.9% 250ML 250 ML IV SCH ×2 (05:06→16:50)
[2018-11-19 05:28] LABS: BASOPHILS % 0.1 % (0.0-1.0); HEMATOCRIT 41.8 % (34.2-44.1); HEMOGLOBIN 13.9 g/dL (12.0-16.0); LYMPHOCYTES # (AUTO) 0.7 (1.0-3.2); LYMPHOCYTES % 8.7 % (18.0-39.1); MEAN CORPUSCULAR HEMOGLOBIN 30.7 pg (28-32); MEAN CORPUSCULAR HGB CONC 33.3 g/dL (31-35); MEAN CORPUSCULAR VOLUME 92.3 fL (81-99); MONOCYTES # (AUTO) 0.1 (0.2-0.8); NEUTROPHILS # (AUTO) 7.2 (2.1-6.9); NEUTROPHILS % 89.5 % (38.7-80.0); PLATELET COUNT 194 x10e3/uL (140-360); RED BLOOD COUNT 4.53 x10e6/uL (3.6-5.1); RED CELL DISTRIBUTION WIDTH 14.7 % (11.7-14.4)
[2018-11-19 05:55] LABS: CREATINE KINASE MB 1.6 ng/mL (0-5.0)
[2018-11-19 06:27] LABS: ALANINE AMINOTRANSFERASE 18 IU/L (0-55); ALBUMIN 3.7 g/dL (3.5-5.0); ALBUMIN/GLOBULIN RATIO 1.6 (0.8-2.0); ALKALINE PHOSPHATASE 54 IU/L (40-150); ANION GAP 13.2 mmol/L (8-16); BLOOD UREA NITROGEN 12 mg/dL (7-26); BUN/CREATININE RATIO 19 (6-25); CALCIUM 9.1 mg/dL (8.4-10.2); CARBON DIOXIDE 22 mmol/L (22-29); CHLORIDE 111 mmol/L (98-107); CREATININE, SERUM 0.64 mg/dL (0.57-1.11); EST GLOMERULAR FILTRATION RATE > 60 ML/MIN (60-); GLUCOSE 164 mg/dL (74-118); POTASSIUM 4.2 mmol/L (3.5-5.1); SODIUM 142 mmol/L (136-145)
--- NOTE | 2018-11-19 07:01 | NUR ---
PATIENT RESTING IN THE BED WITH HOB ELEVATED, 02 PER NC REMAIN INTACT, ROUNDS DONE. CALL LIGHT REMAIN IN REACH.
[2018-11-19] MEDS: FAMOTIDINE 20 MG/2 ML VIAL IV SCH ×2 (08:37→16:16)
[2018-11-19] MEDS: DULOXETINE HCL 20 MG DELAYED RELEASE PO SCH (08:37)
[2018-11-19] MEDS: DULOXETINE HCL 30 MG DELAYED RELEASE PO SCH (08:37)
[2018-11-19] MEDS: HYDROCODONE/APAP 10MG-325MG TAB PO SCH (08:38)
[2018-11-19] MEDS: NICOTINE 7 MG PATCH TOP SCH (08:38)
[2018-11-19] MEDS: LISINOPRIL 10 MG TAB PO SCH (08:39)
[2018-11-19] MEDS ORDERED: DULOXETINE HCL 20 MG DELAYED RELEASE PO SCH (09:00)
[2018-11-19] MEDS ORDERED: BISACODYL 5 MG TAB EC PO PRN (09:45)
[2018-11-19] MEDS: GUAIFENESIN/CODEINE 10 ML CUP PO PRN ×3 (10:34→22:58)
[2018-11-19] MEDS: HYDROCODONE/APAP 10MG-325MG TAB PO PRN ×2 (13:35→19:15)
[2018-11-19 13:46] LABS: CREATINE KINASE MB 1.7 ng/mL (0-5.0)
[2018-11-19] MEDS: DOCUSATE SODIUM LIQD 100 MG/10 ML UDC NG SCH (16:16)
--- NOTE | 2018-11-19 19:00 | NUR ---
patient received awake, alert, lying quietly in bed. vss. respirations even and unlabored. 02/2l/nc in use. patient turned and repositioned for comfort. pm assessment complete. side rails up x 3, call [place] placed within reach. patient instructed to call for assistance when needed.
--- NOTE | 2018-11-19 19:15 | NUR ---
patient medicated with norco 10/325mg po for c/o lower back pain 01/05 at this time.
[2018-11-19] MEDS: TEMAZEPAM 15 MG CAP PO SCH (20:57)
--- NOTE | 2018-11-19 22:58 | NUR ---
patient medicated with robitussin with codeine 10cc po for c/o cough at this time.
[2018-11-20] VITALS (7 sets, daily range): BP systolic 108–171; BP diastolic 45–70
--- NOTE | 2018-11-20 | NUR ---
vss. patient appears to be resting quietly. no further c/o pain/cough noted.
[2018-11-20] MEDS: HYDROCODONE/APAP 10MG-325MG TAB PO PRN ×4 (01:15→19:07)
--- NOTE | 2018-11-20 01:15 | NUR ---
patient medicated with norco 10/325mg po for c/o lower back pain 12/06 at this time.
--- NOTE | 2018-11-20 04:00 | NUR ---
patient appears to be resting quietly. no further c/o pain noted at this time. patient turned and repositioned for comfort.
[2018-11-20] MEDS: ALBUTEROL/IPRATROPIUM 3 ML NEB NEB SCH ×6 (04:27→22:47)
[2018-11-20] MEDS: CEFTAROLINE FOSAMIL ACETATE 600 MG in SODIUM CHLORIDE 0.9% 250ML 250 ML IV SCH ×2 (05:09→17:31)
[2018-11-20] MEDS: METHYLPREDNISOLONE SOD SUCC 40 MG/ML VIAL 1ML IV SCH ×4 (05:10→23:43)
[2018-11-20] MEDS: GUAIFENESIN/CODEINE 10 ML CUP PO PRN ×4 (05:19→22:49)
--- NOTE | 2018-11-20 05:19 | NUR ---
patient medicated with robitussin with codeine 10 cc po for c/o cough at this time.
[2018-11-20 05:33] LABS: BASOPHILS % 0.1 % (0.0-1.0); HEMATOCRIT 38.1 % (34.2-44.1); HEMOGLOBIN 12.6 g/dL (12.0-16.0); LYMPHOCYTES # (AUTO) 0.8 (1.0-3.2); LYMPHOCYTES % 7.7 % (18.0-39.1); MEAN CORPUSCULAR HEMOGLOBIN 30.4 pg (28-32); MEAN CORPUSCULAR HGB CONC 33.1 g/dL (31-35); MONOCYTES # (AUTO) 0.3 (0.2-0.8); MONOCYTES % 3.3 % (4.4-11.3); NEUTROPHILS # (AUTO) 8.7 (2.1-6.9); NEUTROPHILS % 87.9 % (38.7-80.0); PLATELET COUNT 194 x10e3/uL (140-360); RED BLOOD COUNT 4.14 x10e6/uL (3.6-5.1); RED CELL DISTRIBUTION WIDTH 14.7 % (11.7-14.4)
[2018-11-20 05:55] LABS: ALANINE AMINOTRANSFERASE 13 IU/L (0-55); ALBUMIN 3.1 g/dL (3.5-5.0); ALBUMIN/GLOBULIN RATIO 1.5 (0.8-2.0); ALKALINE PHOSPHATASE 46 IU/L (40-150); BLOOD UREA NITROGEN 20 mg/dL (7-26); BUN/CREATININE RATIO 32 (6-25); CALCIUM 8.8 mg/dL (8.4-10.2); CARBON DIOXIDE 25 mmol/L (22-29); CHLORIDE 110 mmol/L (98-107); CREATININE, SERUM 0.62 mg/dL (0.57-1.11); EST GLOMERULAR FILTRATION RATE > 60 ML/MIN (60-); GLUCOSE 150 mg/dL (74-118); SODIUM 141 mmol/L (136-145)
[2018-11-20] MEDS: DULOXETINE HCL 20 MG DELAYED RELEASE PO SCH (08:20)
[2018-11-20] MEDS: FAMOTIDINE 20 MG/2 ML VIAL IV SCH ×2 (08:20→17:25)
[2018-11-20] MEDS: NICOTINE 7 MG PATCH TOP SCH (08:21)
[2018-11-20] MEDS: DULOXETINE HCL 30 MG DELAYED RELEASE PO SCH (08:21)
[2018-11-20] MEDS: SODIUM CHLORIDE FLUSH 10 ML SYR INJ PRN ×2 (08:33→17:26)
[2018-11-20] MEDS: DOCUSATE SODIUM LIQD 100 MG/10 ML UDC NG SCH ×3 (08:33→17:25)
[2018-11-20] MEDS: DOCUSATE SODIUM 100 MG CAP PO PRN ×2 (08:34→17:26)
[2018-11-20] MEDS: LISINOPRIL 10 MG TAB PO SCH (08:51)
[2018-11-20] MEDS ORDERED: LACTULOSE SYRUP 20 GM/30 ML UDC PO PRN (15:15)
[2018-11-20] MEDS ORDERED: MAGNESIUM HYDROXIDE 30 ML UDC PO PRN (15:15)
--- NOTE | 2018-11-20 16:20 | Progress Note ---
DATE: Internal Medicine Progress Note SUBJECTIVE: An 88-year-old female, who came here with pneumonia and COPD exacerbation. She has complained of constipation. PHYSICAL EXAMINATION: VITAL SIGNS: Blood pressure 137/64, temperature 98.4, heart rate 73 per minute, respiratory rate is 20 per minute, oxygen saturation 96%. HEART: Showed regular rate and rhythm. No murmur or added sound. LUNGS: Clear bilaterally. ABDOMEN: Soft. EXTREMITIES: Show no evidence of cyanosis or hematoma. LABORATORY DATA: On BMP; sodium 141, potassium 4.0, chloride 110, CO2 of 25, BUN 20, creatinine 0.62, glucose 115. On CBC; white blood count 9.95, hemoglobin 12.6, hematocrit 38.1, platelet count 194,000. AST 13, ALT 13, total bilirubin 0.5, alkaline phosphatase 46. FINAL IMPRESSION: 1. Left lower lobe pneumonia, most likely secondary to gram-negative bacteria. 2. Chronic obstructive pulmonary disease exacerbation secondary to pneumonia. 3. Sepsis secondary to pneumonia. 4. Chronic diastolic congestive heart failure. 5. Hypertension. 6. Tobacco abuse. 7. Narcotic induced constipation. PLAN OF TREATMENT: Continue albuterol and Atrovent q.4 hours, ceftaroline fosamil acetate IV twice a day, Pepcid 20 mg twice a day, Solu-Medrol 40 mg IV q.6 hours, meclizine 25 mg twice a day, Cymbalta 30 mg daily, [place] 1 tablet q.4 hours as needed for severe pain, Zofran 4 mg q.12 hours as needed, guaifenesin with codeine 10 mL q.4 hours as needed, Colace 100 mg twice a day which we are going to discontinue, start Amitiza 24 mcg p.o. twice a day and milk of magnesia 30 mg q.6 hours as needed for constipation. Continue nicotine 7 mg daily, temazepam 15 mg at bedtime, bisacodyl 10 mg daily, lisinopril 10 mg daily, Cymbalta 20 mg daily. MD YURY Ariza/SANJAY /[id number]
[2018-11-20] MEDS: LUBIPROSTONE 24 MCG CAP PO SCH (17:25)
[2018-11-20] MEDS: METAXALONE 800 MG TAB PO PRN (19:56)
[2018-11-20] MEDS: TEMAZEPAM 15 MG CAP PO SCH (21:02)
[2018-11-21] VITALS (9 sets, daily range): BP systolic 125–160; BP diastolic 59–76
[2018-11-21] MEDS: ALBUTEROL/IPRATROPIUM 3 ML NEB NEB SCH ×6 (00:40→19:47)
[2018-11-21] MEDS: HYDROCODONE/APAP 10MG-325MG TAB PO PRN ×4 (02:53→21:09)
[2018-11-21] MEDS: CEFTAROLINE FOSAMIL ACETATE 600 MG in SODIUM CHLORIDE 0.9% 250ML 250 ML IV SCH ×2 (04:54→17:07)
[2018-11-21] MEDS: METAXALONE 800 MG TAB PO PRN ×2 (04:57→13:45)
[2018-11-21] MEDS: METHYLPREDNISOLONE SOD SUCC 40 MG/ML VIAL 1ML IV SCH ×3 (06:18→16:15)
[2018-11-21] MEDS: SODIUM CHLORIDE FLUSH 10 ML SYR INJ PRN (08:56)
[2018-11-21] MEDS: DULOXETINE HCL 30 MG DELAYED RELEASE PO SCH (08:57)
[2018-11-21] MEDS: NICOTINE 7 MG PATCH TOP SCH (08:57)
[2018-11-21] MEDS: DOCUSATE SODIUM LIQD 100 MG/10 ML UDC NG SCH (08:57)
[2018-11-21] MEDS: FAMOTIDINE 20 MG/2 ML VIAL IV SCH (08:57)
[2018-11-21] MEDS: LUBIPROSTONE 24 MCG CAP PO SCH ×2 (08:57→16:15)
[2018-11-21] MEDS: DULOXETINE HCL 20 MG DELAYED RELEASE PO SCH (08:57)
[2018-11-21] MEDS: LISINOPRIL 10 MG TAB PO SCH (09:13)
[2018-11-21] MEDS: DOCUSATE SODIUM 100 MG CAP PO PRN (09:13)
--- NOTE | 2018-11-21 10:00 | NUR ---
Handoff report to nurse Anne RN, patient alert and oriented x3, no s/s of distress.
[2018-11-21] MEDS: GUAIFENESIN/CODEINE 10 ML CUP PO PRN ×3 (10:25→21:18)
--- NOTE | 2018-11-21 12:31 | Diagnostic Imaging Report ---
EXAMINATION: CHEST 2 VIEWS INDICATION: Left lower lobe pneumonia. COMPARISON: Chest x-ray 11/18/2017. 11/15/2018. FINDINGS: PA and lateral views TUBES and LINES: None. LUNGS: Lungs are well inflated. Stable left basilar atelectasis and/or pneumonia. PLEURA: No pleural effusion or pneumothorax. HEART AND MEDIASTINUM: The cardiomediastinal silhouette is unremarkable. There are atherosclerotic calcifications within the aorta. BONES AND SOFT TISSUES: No acute osseous lesion. Dextroscoliotic changes of the thoracic aorta. Soft tissues are unremarkable. UPPER ABDOMEN: No free air under the diaphragm. IMPRESSION: Stable left basilar atelectasis and/or pneumonia. Signed by: Dr. Ajit Anglin M.D. on 11/21/2018 12:28 PM
--- NOTE | 2018-11-21 15:59 | Progress Note ---
DATE: Internal Medicine Progress Note SUBJECTIVE: She is doing better. She does have some cough. PHYSICAL EXAMINATION: VITAL SIGNS: Blood pressure 159/76, temperature 98.3, heart rate 77 per minute, respiratory rate is 20 per minute, oxygen saturation 95%. HEART: Showed regular rhythm. Normal S1, S2 sounds. LUNGS: Show decreased breath sounds bilaterally. ABDOMEN: Soft, nontender. No distention. EXTREMITIES: Show no evidence of cyanosis or hematoma. LABORATORY DATA: BMP; sodium 141, potassium 4.0, chloride 110, CO2 25, BUN 20, creatinine 0.62, glucose 115. CBC; white blood count 9.95, hemoglobin 12.6, hematocrit 38.1, platelet count 194,000. AST 13, ALT 13, total bilirubin 0.5, alkaline phosphatase 46. IMPRESSION: 1. Left lower lobe pneumonia. 2. Chronic obstructive pulmonary disease exacerbation secondary to pneumonia. 3. Sepsis secondary to pneumonia. 4. Chronic diastolic congestive heart failure. 5. Hypertension. 6. Tobacco abuse. 7. Narcotic-induced constipation. PLAN OF TREATMENT: Continue oxygen. Continue albuterol and Atrovent q.4 hours as needed for shortness of breath. Continue with ceftaroline fosamil acetate 250 mL q.12 hours, Pepcid 20 mg twice a day, Solu-Medrol 40 mg IV q.6 hours, meclizine 25 mg twice a day, Cymbalta 30 mg daily, [place] 1 tablet q.4 hours as needed for severe pain, magnesium hydroxide 30 mL daily, Zofran 4 mg IV twice a day as needed, guaifenesin with codeine 10 mL q.4 hours as needed for cough, Colace 100 mg twice a day, Skelaxin 800 mg 3 times a day as needed for muscle cramps, Nicoderm patch 7 mg daily, temazepam 15 mg at bedtime p.r.n. for sleep, dulcolax 10 mg daily, lactulose 20 g twice a day as needed for constipation, Amitiza 24 mcg twice a day, lisinopril 10 mg daily, Cymbalta 20 mg daily. Colace is going to be discontinued. MD YURY Ariza/SANJAY /[id number]
[2018-11-21] MEDS: FAMOTIDINE 20 MG TAB PO SCH (16:15)
[2018-11-21] MEDS ORDERED: SODIUM CHLORIDE 0.9% 50ML 50 ML ONE (17:02)
[2018-11-21] MEDS: TEMAZEPAM 15 MG CAP PO SCH (21:06)
[2018-11-22] VITALS (8 sets, daily range): BP systolic 140–185; BP diastolic 65–83
[2018-11-22] MEDS: METHYLPREDNISOLONE SOD SUCC 40 MG/ML VIAL 1ML IV SCH ×5 (01:58→23:41)
[2018-11-22] MEDS: GUAIFENESIN/CODEINE 10 ML CUP PO PRN ×3 (03:35→21:06)
[2018-11-22] MEDS: ALBUTEROL/IPRATROPIUM 3 ML NEB NEB SCH ×6 (04:37→23:00)
[2018-11-22 05:48] LABS: BASOPHILS % 0.3 % (0.0-1.0); HEMATOCRIT 40.1 % (34.2-44.1); HEMOGLOBIN 13.4 g/dL (12.0-16.0); LYMPHOCYTES # (AUTO) 0.8 (1.0-3.2); LYMPHOCYTES % 8.1 % (18.0-39.1); MEAN CORPUSCULAR HEMOGLOBIN 30.7 pg (28-32); MEAN CORPUSCULAR HGB CONC 33.4 g/dL (31-35); MEAN CORPUSCULAR VOLUME 91.8 fL (81-99); MONOCYTES # (AUTO) 0.6 (0.2-0.8); MONOCYTES % 6.1 % (4.4-11.3); NEUTROPHILS # (AUTO) 7.7 (2.1-6.9); NEUTROPHILS % 82.7 % (38.7-80.0); PLATELET COUNT 197 x10e3/uL (140-360); RED BLOOD COUNT 4.37 x10e6/uL (3.6-5.1); RED CELL DISTRIBUTION WIDTH 14.2 % (11.7-14.4)
[2018-11-22] MEDS: CEFTAROLINE FOSAMIL ACETATE 600 MG in SODIUM CHLORIDE 0.9% 250ML 250 ML IV SCH ×3 (05:58→18:01)
[2018-11-22 06:12] LABS: ALANINE AMINOTRANSFERASE 14 IU/L (0-55); ALBUMIN 3.1 g/dL (3.5-5.0); ALBUMIN/GLOBULIN RATIO 1.4 (0.8-2.0); ALKALINE PHOSPHATASE 43 IU/L (40-150); ANION GAP 9.9 mmol/L (8-16); BLOOD UREA NITROGEN 19 mg/dL (7-26); BUN/CREATININE RATIO 29 (6-25); CALCIUM 8.5 mg/dL (8.4-10.2); CARBON DIOXIDE 28 mmol/L (22-29); CHLORIDE 105 mmol/L (98-107); CREATININE, SERUM 0.66 mg/dL (0.57-1.11); EST GLOMERULAR FILTRATION RATE > 60 ML/MIN (60-); GLUCOSE 131 mg/dL (74-118); POTASSIUM 3.9 mmol/L (3.5-5.1); SODIUM 139 mmol/L (136-145)
[2018-11-22] MEDS: HYDROCODONE/APAP 10MG-325MG TAB PO PRN ×3 (06:44→20:15)
--- NOTE | 2018-11-22 07:18 | NUR ---
RECEIVED PATIENT AWAKE RESTING IN BED NO SIGNS OF DISTRESS. BED LOW, WHEELS LOCKED, SIDE RAILS X2. CALL LIGHT IN REACH WILL CONTINUE TO MONITOR.
[2018-11-22 07:24] LABS: BLAST CELLS % MANUAL 1; LYMPHOCYTES % (MANUAL) 5 % (19-48); MONOCYTES % (MANUAL) 1 % (3.4-9.0); NEUTROPHILS % (MANUAL) 89 % (40-74)
[2018-11-22 07:25] LABS: ANISOCYTOSIS SLIGHT; HYPOCHROMASIA SLIGHT; PLATELET ESTIMATE ADEQUATE; PLATELET MORPHOLOGY COMMENT NORMAL; RBC MORPHOLOGY COMMENT NORMAL
[2018-11-22] MEDS: DULOXETINE HCL 30 MG DELAYED RELEASE PO SCH (09:00)
[2018-11-22] MEDS: LISINOPRIL 20 MG TAB PO SCH (09:00)
[2018-11-22] MEDS: LUBIPROSTONE 24 MCG CAP PO SCH ×2 (09:00→17:27)
[2018-11-22] MEDS: FAMOTIDINE 20 MG TAB PO SCH ×2 (09:00→17:27)
[2018-11-22] MEDS: NICOTINE 7 MG PATCH TOP SCH (09:00)
[2018-11-22] MEDS: DULOXETINE HCL 20 MG DELAYED RELEASE PO SCH (09:00)
[2018-11-22] MEDS: METAXALONE 800 MG TAB PO PRN ×2 (09:05→17:28)
--- NOTE | 2018-11-22 10:10 | NUR ---
EDUCATED ABOUT IMM, SIGNED, FILED IN CHART, WITH COPY LEFT WITH FAMILY AT BEDSIDE.
--- NOTE | 2018-11-22 10:10 | NUR ---
NEW ORDERS FROM DR. REYNOSO TO DC TELEMETRY AND GIVE LASIX 80 MG IV X1.
[2018-11-22] MEDS ORDERED: FUROSEMIDE INJ 10 MG/ML 4 ML VIAL IV ONE (10:15)
--- NOTE | 2018-11-22 10:47 | NUR ---
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
--- NOTE | 2018-11-22 17:48 | NUR ---
REMOVED RIGHT HAND IV. CATHETER TIP INTACT AND PRESSURE DRESSING APPLIED. NEW IV TO RIGHT FA 20 GAUGE. INTACT/PATENT.
[2018-11-22] MEDS: TEMAZEPAM 15 MG CAP PO SCH (22:02)
[2018-11-23 00:30] VITALS: BP 142/74
[2018-11-23] MEDS: ALBUTEROL/IPRATROPIUM 3 ML NEB NEB SCH ×3 (03:00→11:15)
[2018-11-23] MEDS: HYDROCODONE/APAP 10MG-325MG TAB PO PRN ×2 (03:06→07:54)
[2018-11-23 04:41] LABS: BASOPHILS % 0.3 % (0.0-1.0); HEMATOCRIT 41.7 % (34.2-44.1); HEMOGLOBIN 14.4 g/dL (12.0-16.0); LYMPHOCYTES # (AUTO) 0.9 (1.0-3.2); LYMPHOCYTES % 7.9 % (18.0-39.1); MEAN CORPUSCULAR HEMOGLOBIN 30.8 pg (28-32); MEAN CORPUSCULAR HGB CONC 34.5 g/dL (31-35); MEAN CORPUSCULAR VOLUME 89.3 fL (81-99); MONOCYTES # (AUTO) 0.6 (0.2-0.8); MONOCYTES % 5.1 % (4.4-11.3); NEUTROPHILS % 82.7 % (38.7-80.0); PLATELET COUNT 210 x10e3/uL (140-360); RED BLOOD COUNT 4.67 x10e6/uL (3.6-5.1); RED CELL DISTRIBUTION WIDTH 13.8 % (11.7-14.4)
[2018-11-23 05:04] LABS: ALANINE AMINOTRANSFERASE 14 IU/L (0-55); ALBUMIN 3.1 g/dL (3.5-5.0); ALBUMIN/GLOBULIN RATIO 1.3 (0.8-2.0); ALKALINE PHOSPHATASE 44 IU/L (40-150); ANION GAP 12.8 mmol/L (8-16); BLOOD UREA NITROGEN 23 mg/dL (7-26); BUN/CREATININE RATIO 33 (6-25); CALCIUM 8.7 mg/dL (8.4-10.2); CARBON DIOXIDE 29 mmol/L (22-29); CHLORIDE 99 mmol/L (98-107); EST GLOMERULAR FILTRATION RATE > 60 ML/MIN (60-); GLUCOSE 145 mg/dL (74-118); POTASSIUM 3.8 mmol/L (3.5-5.1); SODIUM 137 mmol/L (136-145)
[2018-11-23] MEDS: CEFTAROLINE FOSAMIL ACETATE 600 MG in SODIUM CHLORIDE 0.9% 250ML 250 ML IV SCH (06:12)
[2018-11-23] MEDS: METHYLPREDNISOLONE SOD SUCC 40 MG/ML VIAL 1ML IV SCH ×2 (06:21→12:25)
--- NOTE | 2018-11-23 06:56 | NUR ---
RECEIVED PATIENT AND WALKING ROUNDS COMPLETE. PATIENT AWAKE IN BED AT THIS TIME. NO SIGNS OF DISTRESS. BED LOW, WHEELS LOCKED, SIDE RAILS X2. CALL LIGHT IN REACH WILL CONTINUE TO MONITOR.
[2018-11-23 07:40] VITALS: BP 168/77
[2018-11-23] MEDS: LUBIPROSTONE 24 MCG CAP PO SCH (07:53)
[2018-11-23] MEDS: DULOXETINE HCL 20 MG DELAYED RELEASE PO SCH (07:53)
[2018-11-23] MEDS: FAMOTIDINE 20 MG TAB PO SCH (07:53)
[2018-11-23] MEDS: DULOXETINE HCL 30 MG DELAYED RELEASE PO SCH (07:53)
[2018-11-23] MEDS: LISINOPRIL 20 MG TAB PO SCH (07:54)
[2018-11-23] MEDS: NICOTINE 7 MG PATCH TOP SCH (07:54)
[2018-11-23 07:58] VITALS: BP 168/77
[2018-11-23 08:23] LABS: LYMPHOCYTES % (MANUAL) 12 % (19-48); MONOCYTES % (MANUAL) 7 % (3.4-9.0); NEUTROPHILS % (MANUAL) 81 % (40-74); PLATELET ESTIMATE ADEQUATE; PLATELET MORPHOLOGY COMMENT NORMAL; RBC MORPHOLOGY COMMENT NORMAL
--- NOTE | 2018-11-23 08:45 | NUR ---
PATIENT A/O X3, EVEN RESPIRATIONS ON 3LNC. LUNG SOUNDS CLEAR TO AUSCULTATION. BOWEL SOUNDS ACTIVE, SKIN INTACT, SLIGHT BRUISING THROUGHOUT UPPER EXTREMITIES. PATIENT AMBULATORY WITH ASSISTANCE. LEFT HAND 20 GAUGE IV SALINE LOCK, INTACT AND PATENT. EDUCATED PATIENT TO CALL FOR ASSISTANCE. CALL LIGHT IN REACH, WILL CONTINUE TO MONITOR PATIENT.
[2018-11-23] MEDS: METAXALONE 800 MG TAB PO PRN (09:22)
[2018-11-23] MEDS ORDERED: FUROSEMIDE INJ 10 MG/ML 4 ML VIAL IV ONE (09:35)
--- NOTE | 2018-11-23 11:12 | Discharge Summary ---
ADMITTING DIAGNOSES: 1. Left lower lobe pneumonia, likely gram-negative chris. 2. Sepsis secondary to pneumonia. 3. Chronic obstructive pulmonary disease exacerbation. 4. Chronic diastolic congestive heart failure. 5. Tobacco abuse. 6. Hypertensive heart disease. DISCHARGE DIAGNOSES: 1. Left lower lobe pneumonia, likely gram-negative chris, resolving. 2. Sepsis secondary to left lower lobe pneumonia, resolved. 3. Chronic obstructive pulmonary disease exacerbation, resolving. 4. [id number] diastolic congestive heart failure. 5. Tobacco abuse. 6. Hypertensive heart disease. 7. Chronic back pain secondary to multilevel lumbar disk disease, now resolved correctly. HOSPITAL COURSE: This is an 88-year-old white woman, who was admitted to [facility] with diagnosis of sepsis secondary to left lower lobe likely gram-negative chris. The patient improved clinically in regard to her sepsis and pneumonia with intravenous antibiotics, namely ceftaroline. The patient also was found to be in [id number] diastolic congestive heart failure, and she did improve with intravenous furosemide. The patient's blood cultures, however, did not reveal any bacterial growth during this hospitalization and her family stated that she was a do not resuscitate code status. Due to her severe COPD as well as her underlying diastolic heart failure, the decision was made to pursue palliative treatment from hospice care. Also during this hospitalization, it was described the patient is oxygen dependent. CONDITION ON DISCHARGE: Stable with an overall fair prognosis. DISCHARGE MEDICATIONS: 1. Levofloxacin 500 mg daily for 10 days. 2. Furosemide 40 mg daily. 3. Prednisone 40 mg daily for five more days. 4. [place] 10/325 one pill every 4 hours p.r.n. pain. 5. Cymbalta 60 mg daily. 6. Vitamin D3 5000 units daily. 7. Lisinopril 20 mg daily. 8. Meclizine 25 mg b.i.d. p.r.n. dizziness. 9. Ondansetron 4 mg one sublingual b.i.d. p.r.n. nausea and vomiting. 10. Temazepam 15 mg at bedtime for insomnia. 11. Albuterol/ipratropium nebulized treatments four times a day as needed for shortness of breath and wheezing. 12. Nicotine patch 7 mg one patch daily. 13. Colace 100 mg b.i.d. 14. Senna 17.6 mg b.i.d. The patient was instructed to stop the following medications, namely pravastatin and coenzyme Q10. FOLLOWUP INSTRUCTIONS: The patient will be discharged home as we stated under home hospice care. An [id number] do not resuscitate code status was completed before discharge. MD ROLY Whitaker/SANJAY /[id number]
[2018-11-23 11:45] VITALS: BP 158/74
[2018-11-23] MEDS ORDERED: LASIX40 MG PO (13:40)
[2018-11-23] MEDS ORDERED: NICOTINE PATCH1 EAC5 TD (13:42)
[2018-11-23] MEDS ORDERED: SENNA S TABLET1 EACH PO (13:43)
[2018-11-23] MEDS ORDERED: LISINOPRIL10 MG PO (13:49)
[2018-11-23] MEDS ORDERED: CYMBALTA30 MG PO (13:49)
[2018-11-23] MEDS ORDERED: METAXALONE800 MG PO (13:51)
[2018-11-23] MEDS ORDERED: PREDNISONE20 MG PO (13:54)
--- NOTE | 2018-11-23 14:14 | NUR ---
REMOVED PATIENTS IV. CATHETER TIP INTACT AND PRESSURE DRESSING APPLIED.
--- NOTE | 2018-11-23 14:18 | NUR ---
PATIENT DISCHARGED FROM FACILITY. PATIENT GATHERED ALL PERSONAL BELONGINGS, DISCHARGE INSTRUCTIONS, AND FOLLOW UP INFORMATION. PATIENT VERBALIZED UNDERSTANDING OF DISCHARGE INSTRUCTIONS. LEFT UNIT IN WHEELCHAIR AND WENT HOME VIA PRIVATE AUTO. NO SIGNS OF DISTRESS LEAVING FACILITY.
== END 2018-11-23 12:18 | disposition hospice, home (50) | DRG 871 ==
LOC: ER 16:29 → ERHOLD 18:50 → IMCU 20:42 → MED/SURG 11-21 10:44
PROVIDERS: ADMIT Internal Medicine; ATTEND Internal Medicine
DX: A41.9 Sepsis, unspecified organism (principal); J15.6 Pneumonia due to other Gram-negative bacteria; I50.33 Acute on chronic diastolic (congestive) heart failure; J44.1 Chronic obstructive pulmonary disease with (acute) exacerbation; R09.02 Hypoxemia; I11.0 Hypertensive heart disease with heart failure; F17.210 Nicotine dependence, cigarettes, uncomplicated; Z82.49 Family history of ischemic heart disease and other diseases of the circulatory system; M19.011 Primary osteoarthritis, right shoulder; K21.9 Gastro-esophageal reflux disease without esophagitis; K59.03 Drug induced constipation; T40.2X5A Adverse effect of other opioids, initial encounter; Z66 Do not resuscitate; Z99.81 Dependence on supplemental oxygen; M47.9 Spondylosis, unspecified
CPT/HCPCS: 36415; 36600; 71046; 80053; 82550; 82553; 82805; 83605; 83735; 83880; 84484; 85025; 87040; 94640; 99284; J1100; J1940; J2920; J3475; J7030; J7050